=== PATIENT | female | born 1980 | race Caucasian/White ===

== ENCOUNTER 2022-07-04 16:44 | Inpatient (IN) | payer MEDICAID, SELFPAY ==
[2022-07-04 16:45] VITALS: BP 117/82; PULSE 84; RESP 16; O2SAT 97
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
[2022-07-04 17:17] LABS: Add Urine Microscopic? NO; Charge for UA Resulting for Rev
[2022-07-04 17:20] LABS: Bilirubin Urine Neg (Negative); Blood Urine Neg (Negative); Glucose Urine UA Norm (Normal); Ketones Urine Negative (Negative); Leukocyte Esterase Urine Negative (Negative); Nitrate Urine Negative (Negative); Protein Urine Neg (Negative); Specific Gravity, Urine 1.015 (1.005-1.030); Urine Appearance Clear (CLEAR); Urine Color Yellow (Yellow); Urobilinogen Urine Norm (Negative); pH Urine 6 (5-7)
[2022-07-04 17:26] LABS: Basophils # 0.1 10^3/uL (0.0-0.1); Eosinophils # 0.4 10^3/uL (0.0-0.8); Hematocrit 34.8 % (37.0-47.0); Hemoglobin 11.4 g/dL (11.5-15.3); Lymphocytes # 2.8 10^3/uL (0.8-4.8); Lymphocytes % 38.4 %; Mean Corpuscular HGB Conc 32.8 g/dL (30.0-36.0); Mean Corpuscular Hemoglobin 28.8 pg (28.0-34.0); Mean Corpuscular Volume 87.9 fl (81-99); Mean Platelet Volume 9.8 fL (7.4-10.4); Monocytes # 0.5 10^3/uL (0.2-0.9); Monocytes % 6.7 %; Neutrophils # 3.51 10^3/uL (1.8-7.7); Neutrophils % 48.6 %; Nucleated Red Blood Cells % 0 %; Platelet Count 273 10^3/cmm (130-400); Red Blood Count 3.96 10^6/uL (4.1-5.3); Red Cell Distribution Width 15.2 % (12.1-15.1); White Blood Count 7.2 10^3/uL (4.0-10.0)
[2022-07-04 17:27] LABS: HCG Qualitative Urine. Negative (Negative)
[2022-07-04 17:28] LABS: Amphetamines Screen Urine Negative (Negative); Barbiturates Screen Urine Negative (Negative); Benzodiazepines Screen Urine Negative (Negative); Cocaine Screen Urine Negative (Negative); Opiate Screen Urine Negative (Negative); PCP Screen Urine Negative (Negative); THC Screen Urine Negative (Negative)
[2022-07-04 17:50] LABS: Alanine Aminotransferase 7 U/L (0-33); Albumin Level 4.5 g/dL (3.5-5.2); Alkaline Phosphatase 96 U/L (35-105); Anion Gap 14.2 (5-19); Aspartate Amino Transferase 15 U/L (0-32); Blood Urea Nitrogen 11 mg/dL (6-20); Calcium 9.2 mg/dL (8.5-10.5); Carbon Dioxide 23 mmol/L (22-29); Chloride 101 mmol/L (98-107); Globulin 2.7 g/dL (1.3-4.6); Glucose 82 mg/dL (65-115); Osmolality Calculated 276 mOsm/kg (285-295); Potassium 4.2 mmol/L (3.5-5.1); Salicylate 2.9 mg/dL (3-10); Sodium 134 mmol/L (136-145); Total Bilirubin 0.2 mg/dL (0.15-1.2); Total Protein 7.2 g/dL (6.6-8.7)
--- NOTE | 2022-07-04 17:50 | PC.NURSE ---
attempted to call report, nurse not available. Will return call to ED for report.
[2022-07-04 18:09] LABS: Acetaminophen < 5.0 ug/mL (10-30)
[2022-07-04 19:37] VITALS: BP 113/77; PULSE 88; RESP 16; O2SAT 98
[2022-07-04 19:48] VITALS: BP 116/74; PULSE 94; RESP 18; TEMP 36.7; O2SAT 96
[2022-07-04] MEDS: trazodone 50 mg Tablet PO (20:27)
[2022-07-04 20:33] VITALS: BP 116/74; PULSE 94; RESP 18; TEMP 36.7; O2SAT 96
[2022-07-05 06:00] VITALS: BP 116/80; PULSE 85; RESP 16; TEMP 36.3; O2SAT 98
[2022-07-05] MEDS: ibuprofen 600 mg Tablet PO (06:07)
[2022-07-05] MEDS: acetaminophen 325 mg Tablet 650 MG PO (07:40)
[2022-07-05] MEDS: citalopram 20 mg Tablet 40 MG PO (07:41)
[2022-07-05] MEDS: quetiapine 25 mg Tablet 50 MG PO ×2 (07:41→16:43)
[2022-07-05] MEDS: levothyroxine 25 mcg Tablet PO (07:41)
[2022-07-05] MEDS: prazosin 1 mg Capsule PO (07:41)
[2022-07-05] MEDS: cetirizine 10 mg Tablet PO (07:41)
[2022-07-05] MEDS: gabapentin 100 mg Capsule PO ×3 (07:42→19:35)
[2022-07-05] MEDS: nicotine 2 mg Gum BUCCAL ×2 (07:42→12:02)
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
[2022-07-05] MEDS: hyDROXYzine 25 mg Capsule 50 MG PO ×2 (12:29→19:39)
[2022-07-05 14:00] VITALS: BP 141/85; PULSE 84; RESP 16; TEMP 36.8; O2SAT 97
[2022-07-05] MEDS: OLANZapine 5 mg ODT PO (16:44)
[2022-07-05] MEDS: paliperidone ER 6 mg Tablet PO (17:44)
[2022-07-05] MEDS: quetiapine 100 mg Tablet 200 MG PO (19:35)
[2022-07-05 20:42] VITALS: BP 108/70; PULSE 58; RESP 16; TEMP 36.6; O2SAT 97
[2022-07-05 20:53] VITALS: BP 108/70; PULSE 58; RESP 16; TEMP 36.6; O2SAT 97
[2022-07-06 05:55] VITALS: BP 125/89; PULSE 67; RESP 16; TEMP 36.6; O2SAT 99
[2022-07-06] MEDS: hyDROXYzine 25 mg Capsule 50 MG PO ×2 (06:01→11:52)
[2022-07-06] MEDS: prazosin 1 mg Capsule PO (08:33)
[2022-07-06] MEDS: gabapentin 100 mg Capsule PO ×3 (08:34→20:29)
[2022-07-06] MEDS: quetiapine 25 mg Tablet 50 MG PO ×2 (08:34→14:52)
[2022-07-06] MEDS: citalopram 20 mg Tablet 40 MG PO (08:34)
[2022-07-06] MEDS: cetirizine 10 mg Tablet PO (08:34)
[2022-07-06] MEDS: levothyroxine 25 mcg Tablet PO (08:34)
[2022-07-06] MEDS: paliperidone ER 6 mg Tablet PO (08:57)
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
[2022-07-06] MEDS: nicotine 4 mg lozenge MUCOUS MEM (10:25)
[2022-07-06 14:00] VITALS: BP 113/78; PULSE 89; RESP 17; TEMP 36.4; O2SAT 96
[2022-07-06] MEDS: acetaminophen 325 mg Tablet 650 MG PO (16:06)
[2022-07-06] MEDS: quetiapine 100 mg Tablet 200 MG PO (20:29)
[2022-07-06] MEDS: trazodone 50 mg Tablet PO ×2 (20:31→21:30)
[2022-07-06 22:00] VITALS: BP 107/75; PULSE 112; RESP 16; TEMP 36.6; O2SAT 95
[2022-07-07] MEDS: quetiapine 25 mg Tablet 50 MG PO ×2 (07:43→14:37)
[2022-07-07] MEDS: citalopram 20 mg Tablet 40 MG PO (07:43)
[2022-07-07] MEDS: cetirizine 10 mg Tablet PO (07:44)
[2022-07-07] MEDS: prazosin 1 mg Capsule PO (07:44)
[2022-07-07] MEDS: gabapentin 100 mg Capsule PO ×3 (07:44→20:17)
[2022-07-07] MEDS: paliperidone ER 6 mg Tablet PO (07:44)
[2022-07-07] MEDS: hyDROXYzine 25 mg Capsule 50 MG PO (09:27)
[2022-07-07] MEDS: nicotine 4 mg lozenge MUCOUS MEM ×2 (10:23→15:38)
[2022-07-07] MEDS: levothyroxine 25 mcg Tablet PO (11:56)
[2022-07-07 14:00] VITALS: BP 111/79; PULSE 103; RESP 17; TEMP 37.1; O2SAT 96
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
[2022-07-07] MEDS: OLANZapine 5 mg ODT PO (17:50)
[2022-07-07] MEDS: doxepin 10 mg Capsule PO (20:17)
[2022-07-07] MEDS: trazodone 50 mg Tablet PO (20:17)
[2022-07-08] MEDS: trazodone 50 mg Tablet PO ×3 (01:39→21:31)
[2022-07-08] MEDS: nicotine 4 mg lozenge MUCOUS MEM (05:24)
[2022-07-08 06:00] VITALS: BP 111/79; PULSE 103; RESP 17; TEMP 37.1; O2SAT 96
[2022-07-08 06:36] VITALS: BP 123/62; PULSE 94; RESP 18; TEMP 36.7; O2SAT 96
[2022-07-08] MEDS: magnesium hydroxide 30 mL UDC PO (06:54)
[2022-07-08] MEDS: acetaminophen 325 mg Tablet 650 MG PO ×2 (07:51→12:04)
[2022-07-08] MEDS: hyDROXYzine 25 mg Capsule 50 MG PO ×3 (07:53→21:32)
--- NOTE | 2022-07-08 08:02 | PC.NURSE ---
Patient resting in bed and sat up for assessment. Patient pleasant and calm this AM. Denies AH/VH and SI/HI.
[2022-07-08] MEDS: citalopram 20 mg Tablet 40 MG PO (08:48)
[2022-07-08] MEDS: cetirizine 10 mg Tablet PO (08:48)
[2022-07-08] MEDS: gabapentin 100 mg Capsule PO ×3 (08:49→20:08)
[2022-07-08] MEDS: levothyroxine 25 mcg Tablet PO (08:49)
[2022-07-08] MEDS: paliperidone ER 6 mg Tablet PO (08:49)
[2022-07-08] MEDS: prazosin 1 mg Capsule PO (08:49)
[2022-07-08] MEDS: quetiapine 25 mg Tablet 50 MG PO ×2 (08:51→15:52)
[2022-07-08] MEDS: OLANZapine 5 mg ODT PO (10:59)
[2022-07-08 14:00] VITALS: BP 139/89; PULSE 107; RESP 17; TEMP 36.6; O2SAT 97
[2022-07-08] MEDS: doxepin 10 mg Capsule PO (20:08)
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
[2022-07-08 22:00] VITALS: BP 139/89; PULSE 107; RESP 17; TEMP 36.6; O2SAT 97
[2022-07-08] MEDS: quetiapine 100 mg Tablet 200 MG PO (22:21)
[2022-07-08 22:38] VITALS: BP 126/70; PULSE 94; RESP 17; TEMP 36.7; O2SAT 96
[2022-07-09 06:00] VITALS: BP 107/73; PULSE 64; RESP 16; TEMP 36.7; O2SAT 99
[2022-07-09] MEDS: hyDROXYzine 25 mg Capsule 50 MG PO ×2 (06:20→12:27)
[2022-07-09] MEDS: cetirizine 10 mg Tablet PO (08:29)
[2022-07-09] MEDS: gabapentin 100 mg Capsule PO (08:29)
[2022-07-09] MEDS: quetiapine 25 mg Tablet 50 MG PO (08:29)
[2022-07-09] MEDS: levothyroxine 25 mcg Tablet PO (08:29)
[2022-07-09] MEDS: prazosin 1 mg Capsule PO (08:30)
[2022-07-09] MEDS: citalopram 20 mg Tablet 40 MG PO (08:30)
[2022-07-09] MEDS: paliperidone ER 6 mg Tablet PO (08:30)
[2022-07-09] MEDS: magnesium hydroxide 30 mL UDC PO (08:35)
[2022-07-09] MEDS: docusate sodium 100 mg Capsule 200 MG PO (08:35)
[2022-07-09] MEDS: nicotine 4 mg lozenge MUCOUS MEM ×2 (10:17→12:06)
[2022-07-09] MEDS: simethicone 80 mg Chew PO (12:06)
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
[2022-07-09 13:33] VITALS: BP 107/73; PULSE 64; RESP 16; TEMP 36.7; O2SAT 99
== END 2022-07-09 14:15 | disposition home or self-care (01) | DRG 885 ==
LOC: ER 17:32 → NP 19:44
PROVIDERS: Admitting Provider Psychiatry & Neurology Psychiatry; Emergency Provider Student in an Organized Health Care Education/Training Program; Visit Provider Psychiatry & Neurology Psychiatry
DX: F31.9 Bipolar disorder, unspecified (principal); R45.851 Suicidal ideations; F17.200 Nicotine dependence, unspecified, uncomplicated; F15.90 Other stimulant use, unspecified, uncomplicated; F12.90 Cannabis use, unspecified, uncomplicated; F14.91 Cocaine use, unspecified, in remission
CPT/HCPCS: 80053; 80306; 80307; 81003; 81025; 85025; 97150; 97165; 99285

== ENCOUNTER 2022-07-27 12:12 | Inpatient (IN) | payer MEDICAID, SELFPAY ==
[2022-07-27 12:19] VITALS: BP 127/88; PULSE 74; RESP 16; TEMP 36.6; O2SAT 99; BMI 28.8
[2022-07-27 14:50] LABS: Add Urine Microscopic? NO; Charge for UA Resulting for Rev
[2022-07-27 14:54] LABS: Bilirubin Urine Neg (Negative); Blood Urine Neg (Negative); Glucose Urine UA Norm (Normal); Ketones Urine Negative (Negative); Leukocyte Esterase Urine Negative (Negative); Nitrate Urine Negative (Negative); Protein Urine Neg (Negative); Specific Gravity, Urine 1.005 (1.005-1.030); Urine Appearance Clear (CLEAR); Urine Color Straw (Yellow); Urobilinogen Urine Neg (Negative); pH Urine 7 (5-7)
[2022-07-27 15:00] LABS: Amphetamines Screen Urine Negative (Negative); Barbiturates Screen Urine Negative (Negative); Benzodiazepines Screen Urine Negative (Negative); Cocaine Screen Urine Negative (Negative); Opiate Screen Urine Negative (Negative); PCP Screen Urine Negative (Negative); THC Screen Urine Negative (Negative)
--- NOTE | 2022-07-27 15:03 | ECG_ITS ---
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 Measurements Intervals [place] Rate: 76 P: 38 DE: 154 QRS: 58 QRSD: 81 T: 23 QT: 381 QTc: 429 Interpretive Statements SINUS RHYTHM LOW QRS VOLTAGE IN PRECORDIAL LEADS [QRS DEFLECTION < 1.0 mV IN CHEST LEADS] NONSPECIFIC T-WAVE ABNORMALITY No previous ECG available for comparison Electronically Signed On 07-27-2022 18:06:38 TAKE OUT WAITER by Sharon King M.D. [id number]
--- NOTE | 2022-07-27 15:13 | ED.C_ITS ---
HPI - Psych General: Chief Complaint: Psychiatric Symptoms Stated Complaint: behavioral issue Time Seen by Provider: 07/27/22 15:01 History of Present Illness: Patient is a 41-year-old female with a history of bipolar disease who presents with suicidal and homicidal ideations. Patient states that she is having thoughts of wanting to harm herself as well as harm others. She states she is going to blow people up using her later. She states she is also having racing thoughts and having difficulty sleeping. She was admitted 1 month ago for similar symptoms. She denies auditory hallucinations but has been having some visual hallucinations, just having visual distortions. She denies missing her medications. Denies drug or alcohol use. She does smoke. Associated symptoms: Reports visual hallucinations, homicidal ideation and suicidal ideation; Deny auditory hallucinations Review of Systems Const: Denies: fever(s) or chills Eyes: Denies: change in vision or blurry vision ENMT: Denies: throat pain or ear or mastoid pain Card: Denies: chest pain or palpitations Resp: Denies: dyspnea or productive cough GI: Denies: abdominal pain, nausea or vomiting : Denies: difficulty voiding or dysuria Musc: Denies: back pain or extremity pain Skin/Breast: Denies: rash Neuro: Denies: headache(s) or dizziness Psych: Reports: sleeping less, visual hallucinations, suicidal ideation and homicidal ideation; Denies: auditory hallucinations [facility] PFSH: Medical History (Updated 07/27/22 @ 15:36 by Steph Morgan MD) [facility] Psychiatric care Female Reproductive History: Date of last menstrual period: 06/21/22 Physical Exam Const: COMMON NORMALS: no acute distress, patient oriented x3 and alert HENMT: COMMON NORMALS: hearing grossly normal bilaterally and moist oral mucous membranes Eye: COMMON NORMALS: Equal, round and reactive pupils present and EOMs intact bilaterally PUPIL: Yes Equal, round and reactive pupils present Resp: COMMON NORMALS: normal respiratory effort, No use of accessory muscles and clear to auscultation bilaterally AUSCULTATION: clear to auscultation bilaterally Cardio: COMMON NORMALS: regular rate and regular rhythm RATE: regular rate RHYTHM: regular rhythm GI: COMMON NORMALS: Soft to palpation and non-tender PALPATION: Yes Soft to palpation Extremity: COMMON NORMALS: capillary refill normal Neuro: COMMON NORMALS: patient oriented x3, no focal motor deficits and no sensory deficits noted SENSORIUM/ORIENTATION: Yes alert Psych: COMMON NORMALS: speech normal; negative for denies hallucinations, negative for denies homicidal ideation and negative for denies suicidal ideation APPEARANCE: Yes grossly normal ATTITUDE: Yes calm ACTIVITY/MOTOR BEHAVIOR: Yes appropriate eye contact SPEECH: Yes normal speech MOOD & AFFECT: Yes apathetic THOUGHT PROCESS: racing thoughts THOUGHT CONTENT: Yes Suicidality present and Yes Hallucination(s) present auditory JUDGEMENT: Limited judgement present (Psych) OTHER: Patient is having both homicidal and suicidal ideations Skin: COMMON NORMALS: no rashes or lesions noted and turgor normal GENERAL SKIN EXAM: no rashes or lesions noted and turgor normal Course Reevaluation(s): Reevaluation #1: Patient is medically cleared for psychiatric admission. Will discuss with a psychiatrist. Consultations: Consultation #1: Discussed with Dr. Parra who agrees with admission Vital Signs: Vital signs: Vital Signs Temperature 97.8 F 07/27/22 12:19 Pulse Rate 74 07/27/22 12:19 Respiratory Rate 16 07/27/22 12:19 Blood Pressure 127/88 07/27/22 12:19 Pulse Oximetry 99 07/27/22 12:19 Oxygen Delivery Me thod 07/27/22 12:19 MDM - Psych Medical Decision Making 41-year-old female with history of bipolar disease who presents with racing thoughts and suicidal and homicidal ideations. The patient will need medical clearance and then psychiatric evaluation and probable psychiatric admission. Lab Data 07/27/22 15:42 07/27/22 15:42 Laboratory Results WBC 7.1 10^3/uL (4.0-10.0) 07/27/22 15:42 RBC 3.94 10^6/uL (4.1-5.3) L 07/27/22 15:42 Hgb 11.5 g/dL (11.5-15.3) 07/27/22 15:42 Hct 34.7 % (37.0-47.0) L 07/27/22 15:42 MCV 88.1 fl (81-99) 07/27/22 15:42 MCH 29.2 pg (28.0-34.0) 07/27/22 15:42 MCHC 33.1 g/dL (30.0-36.0) 07/27/22 15:42 RDW 14.9 % (12.1-15.1) 07/27/22 15:42 Plt Count 318 10^3/cmm (130-400) 07/27/22 15:42 MPV 9.4 fL (7.4-10.4) 07/27/22 15:42 Neut % (Auto) 44.1 % 07/27/22 15:42 Lymph % (Auto) 37.4 % 07/27/22 15:42 [place] % (Auto) 8.5 % 07/27/22 15:42 Eos % (Auto) 8.9 % 07/27/22 15:42 Baso % (Auto) 1.0 % 07/27/22 15:42 Neut # (Auto) 3.12 10^3/uL (1.8-7.7) 07/27/22 15:42 Lymph # (Auto) 2.7 10^3/uL (0.8-4.8) 07/27/22 15:42 [place] # (Auto) 0.6 10^3/uL (0.2-0.9) 07/27/22 15:42 Eos # (Auto) 0.6 10^3/uL (0.0-0.8) 07/27/22 15:42 Baso # (Auto) 0.1 10^3/uL (0.0-0.1) 07/27/22 15:42 Nucleated RBC % (auto) 0 % 07/27/22 15:42 Nucleated RBCs # 0.0 /100WBC 07/27/22 15:42 Sodium 135 mmol/L (136-145) L 07/27/22 15:42 Potassium 3.7 mmol/L (3.5-5.1) 07/27/22 15:42 Chloride 100 mmol/L (98-107) 07/27/22 15:42 Carbon Dioxide 26 mmol/L (22-29) 07/27/22 15:42 Anion Gap 12.7 (5-19) 07/27/22 15:42 BUN 14 mg/dL (6-20) 07/27/22 15:42 Creatinine 0.9 mg/dL (0.5-0.9) 07/27/22 15:42 GFR Calculation 69.0 mL/min (90-130) L 07/27/22 15:42 Glucose 64 mg/dL (65-115) L 07/27/22 15:42 Calculated Osmolality 279 mOsm/kg (285-295) L 07/27/22 15:42 Calcium 9.8 mg/dL (8.5-10.5) 07/27/22 15:42 Total Bilirubin 0.2 mg/dL (0.15-1.2) 07/27/22 15:42 AST 17 U/L (0-32) 07/27/22 15:42 ALT 12 U/L (0-33) 07/27/22 15:42 Alkaline Phosphatase 104 U/L (35-105) 07/27/22 15:42 Total Protein 7.3 g/dL (6.6-8.7) 07/27/22 15:42 Albumin 4.4 g/dL (3.5-5.2) 07/27/22 15:42 Globulin 2.9 g/dL (1.3-4.6) 07/27/22 15:42 HCG, Qual Negative (Negative) 07/27/22 15:42 Urine Color Straw (Yellow) 07/27/22 12:49 Urine Appearance Clear (CLEAR) 07/27/22 12:49 Urine pH 7 (5-7) 07/27/22 12:49 Ur Specific [place] 1.005 (1.005-1.030) 07/27/22 12:49 Urine Protein Neg (Negative) 07/27/22 12:49 Urine Glucose (UA) Norm (Normal) 07/27/22 12:49 Urine Ketones Negative (Negative) 07/27/22 12:49 Urine Blood Neg (Negative) 07/27/22 12:49 Urine Nitrate Negative (Negative) 07/27/22 12:49 Urine Bilirubin Neg (Negative) 07/27/22 12:49 Urine Urobilinogen Neg mg/dL (Negative) 07/27/22 12:49 Ur Leukocyte Esterase Negative (Negative) 07/27/22 12:49 Salicylates < 0.3 mg/dL (3-10) L 07/27/22 15:42 Urine Opiates Screen Negative ng/mL (Negative) 07/27/22 12:49 Urine Opiates Screen Negative ng/mL (Negative) 07/27/22 12:49 Acetaminophen < 5.0 ug/mL (10-30) L 07/27/22 15:42 Ur Barbiturates Screen Negative ng/mL (Negative) 07/27/22 12:49 Ur Barbiturates Screen Negative ng/mL (Negative) 07/27/22 12:49 Ur Phencyclidine Scrn Negative ng/mL (Negative) 07/27/22 12:49 Ur Phencyclidine Scrn Negative ng/mL (Negative) 07/27/22 12:49 Ur Amphetamines Screen Negative ng/mL (Negative) 07/27/22 12:49 Ur Amphetamines Screen Negative ng/mL (Negative) 07/27/22 12:49 U Benzodiazepines Scrn Negative ng/mL (Negative) 07/27/22 12:49 U Benzodiazepines Scrn Negative ng/mL (Negative) 07/27/22 12:49 Urine Cocaine Screen Negative ng/mL (Negative) 07/27/22 12:49 Urine Cocaine Screen Negative ng/mL (Negative) 07/27/22 12:49 U Marijuana (THC) Screen Negative ng/mL (Negative) 07/27/22 12:49 U Marijuana (THC) Screen Negative ng/mL (Negative) 07/27/22 12:49 Ethyl Alcohol < 10 mg/dL (0-10) 07/27/22 15:42 Discharge Plan Discharge Patient Disposition: Admitted As Inpatient Clinical Impression: Suicidal ideation, Bipolar disorder, Homicidal ideations Condition: Stable Prescriptions: No Action citalopram 40 mg tablet 40 mg PO DAILY 30 Days Qty: 30 3RF gabapentin 100 mg capsule 100 mg PO TID 30 Days Qty: 90 1RF levothyroxine 25 mcg tablet 25 mcg PO DAILY 30 Days Qty: 30 1RF paliperidone 6 mg tablet extended release 24hr 6 mg PO DAILY 30 Days Qty: 30 1RF prazosin 1 mg capsule 1 mg PO DAILY 30 Days Qty: 30 1RF quetiapine 200 mg tablet 200 mg PO BEDTIME 30 Days Qty: 30 1RF quetiapine 25 mg tablet 50 mg PO BID@0900,1500 30 Days Qty: 60 1RF trazodone 50 mg tablet 25 mg PO DAILY Qty: 30 1RF hydroxyzine HCl 50 mg tablet 50 mg PO TID 30 Days Qty: 90 0RF doxepin 10 mg Capsule 10 mg PO BEDTIME 30 Days Qty: 30 1RF cetirizine 10 mg tablet 10 mg PO DAILY 30 Days Qty: 30 1RF Coding Level of Care Code ED Statistical Programmer for Chg Fwd Exam Comprehensive
[2022-07-27 15:59] LABS: Basophils # 0.1 10^3/uL (0.0-0.1); Eosinophils # 0.6 10^3/uL (0.0-0.8); Eosinophils % 8.9 %; Hematocrit 34.7 % (37.0-47.0); Hemoglobin 11.5 g/dL (11.5-15.3); Lymphocytes # 2.7 10^3/uL (0.8-4.8); Lymphocytes % 37.4 %; Mean Corpuscular HGB Conc 33.1 g/dL (30.0-36.0); Mean Corpuscular Hemoglobin 29.2 pg (28.0-34.0); Mean Corpuscular Volume 88.1 fl (81-99); Mean Platelet Volume 9.4 fL (7.4-10.4); Monocytes # 0.6 10^3/uL (0.2-0.9); Monocytes % 8.5 %; Neutrophils # 3.12 10^3/uL (1.8-7.7); Neutrophils % 44.1 %; Nucleated Red Blood Cells % 0 %; Platelet Count 318 10^3/cmm (130-400); Red Blood Count 3.94 10^6/uL (4.1-5.3); Red Cell Distribution Width 14.9 % (12.1-15.1); White Blood Count 7.1 10^3/uL (4.0-10.0)
[2022-07-27 16:04] LABS: Amphetamines Screen Urine Negative (Negative); Barbiturates Screen Urine Negative (Negative); Benzodiazepines Screen Urine Negative (Negative); Cocaine Screen Urine Negative (Negative); Opiate Screen Urine Negative (Negative); PCP Screen Urine Negative (Negative); THC Screen Urine Negative (Negative)
[2022-07-27 16:30] LABS: HCG, Serum Qual Negative (Negative)
[2022-07-27 16:32] LABS: Alanine Aminotransferase 12 U/L (0-33); Albumin Level 4.4 g/dL (3.5-5.2); Alkaline Phosphatase 104 U/L (35-105); Anion Gap 12.7 (5-19); Aspartate Amino Transferase 17 U/L (0-32); Blood Urea Nitrogen 14 mg/dL (6-20); Calcium 9.8 mg/dL (8.5-10.5); Carbon Dioxide 26 mmol/L (22-29); Chloride 100 mmol/L (98-107); Globulin 2.9 g/dL (1.3-4.6); Glucose 64 mg/dL (65-115); Osmolality Calculated 279 mOsm/kg (285-295); Potassium 3.7 mmol/L (3.5-5.1); Sodium 135 mmol/L (136-145); Total Bilirubin 0.2 mg/dL (0.15-1.2); Total Protein 7.3 g/dL (6.6-8.7)
[2022-07-27 16:35] LABS: Acetaminophen < 5.0 ug/mL (10-30); Alcohol Level < 10 mg/dL (0-10); Salicylate < 0.3 mg/dL (3-10)
[2022-07-27 17:19] LABS: SARS Covid-2 Antigen Negative (Negative)
[2022-07-27] MEDS: nicotine 14 mg Patch 1 PATCH TRANSDERMA (17:19)
[2022-07-27 21:02] VITALS: PULSE 70; RESP 14; O2SAT 99
[2022-07-27 21:12] VITALS: BP 117/85; PULSE 86; RESP 18; TEMP 36.4; O2SAT 96
[2022-07-27] MEDS: acetaminophen 325 mg Tablet 650 MG PO (21:23)
[2022-07-27 22:00] VITALS: BP 117/85; PULSE 86; RESP 18; TEMP 36.4
[2022-07-27] MEDS: gabapentin 100 mg Capsule PO (22:30)
[2022-07-27] MEDS: doxepin 10 mg Capsule PO (22:30)
[2022-07-27] MEDS: hyDROXYzine 25 mg Capsule 50 MG PO (22:30)
[2022-07-27] MEDS: trazodone 50 mg Tablet PO (22:30)
[2022-07-28] MEDS: acetaminophen 325 mg Tablet 650 MG PO ×3 (02:45→15:05)
[2022-07-28] MEDS: ibuprofen 600 mg Tablet PO ×3 (05:27→20:08)
[2022-07-28 06:00] VITALS: BP 125/83; PULSE 79; RESP 18; TEMP 36.4; O2SAT 99
[2022-07-28] MEDS: levothyroxine 25 mcg Tablet PO (08:58)
[2022-07-28] MEDS: prazosin 1 mg Capsule PO (08:58)
[2022-07-28] MEDS: paliperidone ER 6 mg Tablet PO (08:58)
[2022-07-28] MEDS: citalopram 20 mg Tablet 40 MG PO (08:59)
[2022-07-28] MEDS: cetirizine 10 mg Tablet PO (08:59)
[2022-07-28] MEDS: hyDROXYzine 25 mg Capsule 50 MG PO ×3 (08:59→20:10)
[2022-07-28] MEDS: gabapentin 100 mg Capsule PO ×3 (08:59→20:09)
[2022-07-28] MEDS: quetiapine 25 mg Tablet 50 MG PO ×2 (08:59→15:06)
[2022-07-28 14:00] VITALS: BP 114/80; PULSE 64; RESP 17; TEMP 36.7; O2SAT 98
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
[2022-07-28] MEDS: docusate sodium 100 mg Capsule 200 MG PO (20:09)
[2022-07-28] MEDS: doxepin 10 mg Capsule PO (20:09)
[2022-07-28] MEDS: quetiapine 100 mg Tablet 200 MG PO (20:09)
[2022-07-28] MEDS: trazodone 50 mg Tablet PO (20:11)
[2022-07-28 20:31] VITALS: BP 110/74; PULSE 92; RESP 17; TEMP 36.4; O2SAT 98
[2022-07-29] MEDS: acetaminophen 325 mg Tablet 650 MG PO ×4 (02:39→20:43)
[2022-07-29] MEDS: magnesium hydroxide 30 mL UDC PO (02:45)
[2022-07-29] MEDS: hyDROXYzine 25 mg Capsule 50 MG PO ×4 (02:45→20:44)
--- NOTE | 2022-07-29 02:51 | PC.NURSE ---
Patient woke up with a head ache which caused an anxiety flair. She was also concerned about her constipation. Vistaril 50mg PO and M.O.M. 30ml PO given for anxiety and constipation.
[2022-07-29] MEDS: ibuprofen 600 mg Tablet PO ×3 (05:16→22:49)
[2022-07-29 06:00] VITALS: BP 119/85; PULSE 96; RESP 18; TEMP 36.3; O2SAT 99
[2022-07-29] MEDS: prazosin 1 mg Capsule 2 MG PO (08:30)
[2022-07-29] MEDS: paliperidone ER 6 mg Tablet 9 MG PO (08:31)
[2022-07-29] MEDS: gabapentin 100 mg Capsule PO ×3 (08:33→20:43)
[2022-07-29] MEDS: quetiapine 25 mg Tablet 50 MG PO ×2 (08:34→18:13)
[2022-07-29] MEDS: citalopram 20 mg Tablet PO (08:34)
[2022-07-29] MEDS: cetirizine 10 mg Tablet PO (08:34)
[2022-07-29] MEDS: levothyroxine 25 mcg Tablet PO (08:34)
[2022-07-29 14:00] VITALS: BP 120/68; PULSE 78; RESP 18; TEMP 36.6; O2SAT 99
--- NOTE | 2022-07-29 16:54 | P.NPUPN_ITS ---
Subjective NPU Subjective: Patient presented today recounting the circumstances that led to her come back to the hospital. She did not find that she is actually doing better and was trying to avoid things getting to a worse place. She did 5 vet she had not been sleeping as well and we discussed ultimately making sure that she had 150 mg of trazodone available after discharge. We discussed the risks, benefits and alternatives of having a prescription to be for 1 mg up to 1-1/2 at night and she understood and agreed to proceed as documented in this note. Mental Status Exam MSE Comments: This is well nourished, well developed white female in hospital scrubs with adequate grooming and eye contact. No abnormal involuntary motor movements. Cooperative with exam in no acute distress. Speech was slightly pressured with increased in volume and increased rate. Mood described as a little better today , affect is congruent. Thought process was linear and mostly organized. Thought content: patient denies suicidal or homicidal ideation, denies paranoia currently and no clear delusions noted She denied current auditory or visual hallucinations. Attention and concentration are intact and memory appeared reliable but none were formally tested. She is alert and oriented three times. Insight and judgment are impaired. Impulse control is poor. Vitals/I&O/Wt Last Vital Signs Temp 97.6 F 07/29/22 20:40 Pulse 79 07/29/22 20:40 Resp 17 07/29/22 20:40 BP 116/78 07/29/22 20:40 Pulse Ox 97 07/29/22 20:40 O2 Del Method 07/29/22 20:40 Data NPU 07/27/22 15:42 07/27/22 15:42 A&P Assessment and plan (1) Auditory hallucinations: (2) Suicidal ideation: (3) Katt: (4) Bipolar disorder: (5) Suicidal ideation: Plan This is a 41 year old woman with a history of trauma, methamphetamine and cocaine use, with negative drug screen and genetic loading for mental health issues who presents with reports of suicidal ideation decreased need for sleep and some increase in racing thoughts. 1. Restart current medications with increase in invega to 9mg daily. Continue Seroquel at 50bid, 200qhs. Increase Prazosin to 6mg at night. Taper Ce tanisha with plan for discontinuation as it may increase risk of katt. Increase trazodone to 100 mg p.o. nightly with access to 50 milligrams as needed. 2. Encourage individual, group and milieu therapy 3. Continue q-15 minute check for safety 4. Recommend sober living treatment at the highest level of care to which the patient is willing to commit. Involuntary Hold Information 96 Hour Hold: 96 Hour Involuntary Admission: No Attestations NPU Medical Necessity Statement*: Inpatient hospitalization is medically necessary and the clinically appropriate intervention at this time. We will monitor medications and make changes as indicated. Likely length of stay is 3-6 days. Coding Level of Care Code Acute Mold Injector for Chg Fwd Diagnoses Auditory hallucinations R44.0 Suicidal ideation R45.851 Katt F30.9 Bipolar disorder F31.9 Suicidal ideation R45.851
[2022-07-29 20:40] VITALS: BP 116/78; PULSE 79; RESP 17; TEMP 36.4; O2SAT 97
[2022-07-29] MEDS: quetiapine 100 mg Tablet 200 MG PO (20:43)
[2022-07-29] MEDS: trazodone 50 mg Tablet 25 MG PO (20:43)
[2022-07-29] MEDS: doxepin 10 mg Capsule PO (20:43)
[2022-07-30] MEDS: acetaminophen 325 mg Tablet 650 MG PO ×2 (04:16→11:53)
[2022-07-30 06:00] VITALS: BP 114/77; PULSE 60; RESP 18; TEMP 36.6; O2SAT 94
[2022-07-30] MEDS: nicotine 4 mg lozenge MUCOUS MEM (07:40)
[2022-07-30] MEDS: docusate sodium 100 mg Capsule 200 MG PO (07:42)
[2022-07-30] MEDS: ibuprofen 600 mg Tablet PO (07:43)
[2022-07-30] MEDS: cetirizine 10 mg Tablet PO (08:30)
[2022-07-30] MEDS: paliperidone ER 6 mg Tablet 9 MG PO (08:30)
[2022-07-30] MEDS: citalopram 20 mg Tablet PO (08:30)
[2022-07-30] MEDS: gabapentin 100 mg Capsule PO (08:30)
[2022-07-30] MEDS: prazosin 1 mg Capsule 2 MG PO (08:30)
[2022-07-30] MEDS: hyDROXYzine 25 mg Capsule 50 MG PO (08:30)
[2022-07-30] MEDS: levothyroxine 25 mcg Tablet PO (08:30)
[2022-07-30] MEDS: quetiapine 25 mg Tablet 50 MG PO (08:30)
[2022-07-30] MEDS: nicotine 2 mg Gum BUCCAL (12:22)
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
[2022-07-30 13:28] VITALS: BP 114/77; PULSE 60; RESP 18; TEMP 36.6; O2SAT 94
== END 2022-07-30 14:05 | disposition home or self-care (01) | DRG 885 ==
LOC: ER 17:06 → NP 17:42
PROVIDERS: Admitting Provider Psychiatry & Neurology Psychiatry; Emergency Provider Emergency Medicine; Visit Provider Psychiatry & Neurology Psychiatry
DX: F31.9 Bipolar disorder, unspecified (principal); R45.851 Suicidal ideations; F43.12 Post-traumatic stress disorder, chronic; Z59.00 Homelessness unspecified; F15.90 Other stimulant use, unspecified, uncomplicated; F14.90 Cocaine use, unspecified, uncomplicated
CPT/HCPCS: 36415; 80053; 80306; 80307; 81003; 84443; 84703; 85025; 87426; 93005; 97150; 97165; 99285

== ENCOUNTER → 2022-08-11 15:40 | Outpatient (BNVA) | payer MEDICAID, SELFPAY | PROVIDERS: Visit Provider Emergency Medicine | DX: E03.9 Hypothyroidism, unspecified (principal); I10 Essential (primary) hypertension | CPT/HCPCS: 85025 ==

== ENCOUNTER 2023-01-25 12:47 | Outpatient (CLI) | payer OTHER, MEDICAID, SELFPAY ==
[2023-01-25 13:37] LABS: Basophils % 0.7 %; Eosinophils # 0.4 10^3/uL (0.0-0.8); Eosinophils % 6.5 %; Hematocrit 35.5 % (37.0-47.0); Hemoglobin 11.6 g/dL (11.5-15.3); Lymphocytes # 2.3 10^3/uL (0.8-4.8); Lymphocytes % 40.3 %; Mean Corpuscular HGB Conc 32.7 g/dL (30.0-36.0); Mean Corpuscular Hemoglobin 28.7 pg (28.0-34.0); Mean Corpuscular Volume 87.9 fl (81-99); Mean Platelet Volume 11.3 fL (7.4-10.4); Monocytes # 0.5 10^3/uL (0.2-0.9); Monocytes % 8.6 %; Neutrophils # 2.44 10^3/uL (1.8-7.7); Neutrophils % 43.7 %; Nucleated Red Blood Cells % 0 %; Platelet Count 251 10^3/cmm (130-400); Red Blood Count 4.04 10^6/uL (4.1-5.3); Red Cell Distribution Width 14.9 % (12.1-15.1); White Blood Count 5.6 10^3/uL (4.0-10.0)
[2023-01-25 14:09] LABS: Alanine Aminotransferase 7 U/L (0-33); Albumin Level 4.2 g/dL (3.5-5.2); Alkaline Phosphatase 101 U/L (35-105); Anion Gap 12.9 (5-19); Aspartate Amino Transferase 12 U/L (0-32); Blood Urea Nitrogen 5 mg/dL (6-20); Calcium 8.6 mg/dL (8.5-10.5); Carbon Dioxide 22 mmol/L (22-29); Chloride 106 mmol/L (98-107); Chol HDL Ratio 3.58 mg/dL (0.0-4.40); Cholesterol 143 mg/dL (0-200); Globulin 2.6 g/dL (1.3-4.6); Glomerular Filtration Rate 78.7 mL/min (90-130); Glucose 92 mg/dL (65-115); HDL Cholesterol 40 mg/dL (60-100); LDL Cholesterol Calculated 86 mg/dL (50-129); LDL HDL Ratio 2.15 RATIO (0.00-3.22); Osmolality Calculated 281 mOsm/kg (285-295); Potassium 3.9 mmol/L (3.5-5.1); Sodium 137 mmol/L (136-145); Total Bilirubin 0.2 mg/dL (0.15-1.2); Total Protein 6.8 g/dL (6.6-8.7); Triglycerides 86 mg/dL (0-150)
[2023-01-25 14:52] LABS: Free T4 Free Thyroxine 0.38 ng/dL (0.82-1.77)
[2023-01-25 15:36] LABS: Estmated Average Glucose 97
[2023-01-28 11:44] LABS: Thyroid Peroxidase Antobodies >900 IU/mL (<9)
== END 2023-01-25 12:48 | disposition home or self-care (01) ==
LOC: LAB 12:51
PROVIDERS: PCP Family Medicine; Visit Provider Family Medicine
DX: E03.9 Hypothyroidism, unspecified (principal)
CPT/HCPCS: 36415; 80053; 80061; 83036; 84439; 84443; 85025; 86376

== ENCOUNTER 2023-02-07 06:07 | Outpatient (CLI) | payer OTHER, MEDICAID, SELFPAY ==
--- NOTE | 2023-02-07 06:15 | US_ITS ---
WS: [id number] RIGHT UPPER QUADRANT ULTRASOUND HISTORY: RUQ pain COMPARISON: None available. Liver: 16.4 cm in length. Normal size liver and echogenicity. No bile duct dilatation or mass. Portal Vein: Normal hepatopetal flow with monophasic waveform. Gallbladder: Normally distended gallbladder with no stones or wall thickening. CBD: 0.3 cm Pancreas: Normal size and echogenicity. Right kidney: 11.2 cm in length. Normal size and echogenicity. No hydronephrosis or mass. Aorta and IVC: Unremarkable abdominal aorta and IVC. No ascites. US/US gall bladder [id number] IMPRESSION: Normal RIGHT upper quadrant ultrasound.
== END 2023-02-07 06:08 | disposition home or self-care (01) ==
LOC: RAD 06:08
PROVIDERS: PCP Family Medicine; Visit Provider Family Medicine
DX: R10.11 Right upper quadrant pain (principal)
CPT/HCPCS: 76705

== ENCOUNTER 2023-02-11 14:21 | Outpatient (CLI) | payer MEDICAID, SELFPAY ==
--- NOTE | 2023-02-11 14:45 | US_ITS ---
WS: [id number] THYROID ULTRASOUND HISTORY: hypothyroid, nodule COMPARISON: None available. Right lobe: 2.0 cm x 1.9 cm x 5.1 cm (w x ap x l). Volume: 10.3 cm3. Mildly enlarged thyroid. Very heterogeneous appearance of the thyroid gland small micronodules with t hick fibrous septa throughout the gland. No increased vascularity or focal mass. Scattered areas of v ariable echogenicity. Left lobe: 1.4 cm x 1.9 cm x 4.7 cm (w x ap x l). Volume: 6.4 cm3. Normal size gland. Thick fibrous septa with small hypoechoic micronodules scattered throughout the gl and. No increased vascularity. Isthmus: 0.4 cm. Small cervical chain lymph nodes. These lymph nodes appear benign. US/US thyroid [id number] IMPRESSION: 1. Appearance of the thyroid gland is most consistent with chronic Denita's thyroiditis. 2. No nodule concerning for biopsy.
== END 2023-02-11 14:22 | disposition home or self-care (01) ==
LOC: RAD 14:30
PROVIDERS: PCP Family Medicine; Visit Provider Family Medicine
DX: E03.9 Hypothyroidism, unspecified (principal)
CPT/HCPCS: 76536

== ENCOUNTER → 2023-02-25 11:24 | Outpatient (BNVA) | payer MEDICAID, SELFPAY | PROVIDERS: PCP Family Medicine; Visit Provider Internal Medicine | DX: E03.9 Hypothyroidism, unspecified (principal); F41.9 Anxiety disorder, unspecified; Z79.890 Hormone replacement therapy | CPT/HCPCS: 99204 ==

== ENCOUNTER 2023-03-02 15:13 | Outpatient (CLI) | payer MEDICAID, SELFPAY ==
[2023-03-02 20:08] LABS: Free T4 Free Thyroxine 1.44 ng/dL (0.82-1.77)
[2023-03-07 10:30] LABS: Thyroid Peroxidase Antobodies >900 IU/mL (<9)
[2023-03-07 10:34] LABS: Thyroglobulin AB 230 IU/mL (< or = 1)
== END 2023-03-02 15:14 | disposition home or self-care (01) ==
PROVIDERS: PCP Family Medicine; Visit Provider Internal Medicine
DX: E03.9 Hypothyroidism, unspecified (principal)
CPT/HCPCS: 36415; 84439; 86376; 86800

== ENCOUNTER → 2023-04-27 12:22 | Outpatient (BNVA) | payer OTHER, MEDICAID, SELFPAY ==
[2023-04-06 13:09] VITALS: BP 126/78; BMI 29.1
== END ==
PROVIDERS: PCP Family Medicine; Visit Provider Family Medicine
DX: Z12.4 Encounter for screening for malignant neoplasm of cervix (principal); N89.8 Other specified noninflammatory disorders of vagina
CPT/HCPCS: 87481; 87512; 87624; 87799

== ENCOUNTER → 2023-05-10 12:00 | Outpatient (BNVA) | payer OTHER, MEDICAID, SELFPAY ==
[2023-04-06 13:09] VITALS: BP 126/78; BMI 29.1
== END ==
PROVIDERS: PCP Family Medicine; Visit Provider Internal Medicine
DX: E03.9 Hypothyroidism, unspecified (principal); F41.9 Anxiety disorder, unspecified; K21.9 Gastro-esophageal reflux disease without esophagitis; R53.83 Other fatigue
CPT/HCPCS: 82306; 82607; 83540; 84439; 84443

== ENCOUNTER → 2023-05-18 11:48 | Outpatient (BNVA) | payer OTHER, SELFPAY ==
[2023-04-06 13:09] VITALS: BP 126/78; BMI 29.1
== END ==
PROVIDERS: PCP Family Medicine; Visit Provider Psychiatry & Neurology Psychiatry
DX: F15.11 Other stimulant abuse, in remission (principal); F19.10 Other psychoactive substance abuse, uncomplicated; F11.21 Opioid dependence, in remission; F15.20 Other stimulant dependence, uncomplicated; F31.9 Bipolar disorder, unspecified
CPT/HCPCS: 80307

== ENCOUNTER 2023-06-22 14:21 | Outpatient (CLI) | payer MEDICAID, SELFPAY ==
[2023-04-06 13:09] VITALS: BP 126/78; BMI 29.1
[2023-06-22 15:22] LABS: Alanine Aminotransferase 11 U/L (0-33); Albumin Level 4.1 g/dL (3.5-5.2); Alkaline Phosphatase 95 U/L (35-105); Aspartate Amino Transferase 18 U/L (0-32); Blood Urea Nitrogen 6 mg/dL (6-20); Calcium 9.5 mg/dL (8.5-10.5); Carbon Dioxide 26 mmol/L (22-29); Chloride 105 mmol/L (98-107); Globulin 2.7 g/dL (1.3-4.6); Glomerular Filtration Rate 68.7 mL/min (90-130); Glucose 100 mg/dL (65-115); Osmolality Calculated 288 mOsm/kg (285-295); Sodium 140 mmol/L (136-145); Total Bilirubin 0.3 mg/dL (0.15-1.2); Total Protein 6.8 g/dL (6.6-8.7)
[2023-06-22 15:35] LABS: Hepatitis A Antibody IgM Non-Reactive (Nonreactive); Hepatitis B Core IgM Non-Reactive (Nonreactive); Hepatitis B Surface Antigen Non-Reactive (Nonreactive); Hepatitis C Virus Antibody Non-Reactive (Nonreactive)
[2023-06-22 15:38] LABS: HIV 1 & 2 Antibody Non-Reactive (Non-Reactiv); HIV 1 & 2 Antigen Non-Reactive (Non-Reactiv)
== END 2023-06-22 14:22 | disposition home or self-care (01) ==
LOC: LAB 14:24
PROVIDERS: PCP Family Medicine; Visit Provider Family Medicine
DX: Z72.51 High risk heterosexual behavior (principal); F15.20 Other stimulant dependence, uncomplicated
CPT/HCPCS: 36415; 80053; 80074; 87806

== ENCOUNTER 2023-07-27 05:58 | Day surgery (SDC) | payer MEDICAID, SELFPAY ==
[2023-04-06 13:09] VITALS: BP 126/78; BMI 29.1
[2023-07-27 06:12] VITALS: BP 139/100; PULSE 106; RESP 16; TEMP 36.5; O2SAT 97
[2023-07-27 06:27] LABS: OR HCG Qualitative Urine Negative (Negative)
--- NOTE | 2023-07-27 06:36 | P.ANESASSM_ITS ---
Pre-Anesthetic Assessment Height/Weight: Height 1.74 m Temp Pulse Resp BP Pulse Ox O2 Del Method 97.7 F 106 H 16 139/100 97 Room Air 07/27/23 06:12 07/27/23 06:12 07/27/23 06:12 07/27/23 06:12 07/27/23 06:12 07/27/23 06:12 Operation Date: 07/27/23 07:00 Proposed Procedures p EGD 27725,K21.9(Not Applicable) - Pranav Rodriguez DO Familial anesthetic complications: None Was Beta Jonathan taken within 24 hours: N/A Was Clonidine taken within 24 hours: N/A Last intake: Intake Last Liquid Date 07/26/23 Last Liquid Time 20:00 Last Solid Date 07/25/23 Last Solid Time 15:00 Social Tobacco 0.5 pack(s) per day Exam alert, oriented x 3, clear to auscultation bilaterally and regular rate & rhythm Airway Submandibular: within normal limits Cervical ROM: within normal limits Mallampati: Class II Dentition: full History/ROS No significant history except as noted and No significant complaints Pulmonary None reported CV/HEM Arrythmia (Tachycardia) and Hypertension None reported Hepatic None reported GI Gastroesophageal Reflux Disease Constipation Metabolic Thyroid Disease [facility] [place] None reported Neuropsych Anxiety, Depression and Seizure (2014 none since) Bipolar/radha Anesthetic Plan ASA status: 3 Anesthesia: Anesthesia Evaluation, General and MAC Medications/Allergies Home Medications Medication Instructions Recorded Confirmed Last Taken Type cetirizine 10 mg tablet 10 mg PO DAILY 30 days #30 tabs 08/11/22 07/27/23 07/26/23 Rx fluticasone propionate 50 2 spray nasal BID PRN Congestion 06/06/23 07/27/23 07/26/23 Rx mcg/actuation nasal 30 days #1 g spray,suspension sucralfate 1 gram tablet (Carafate) 1 g PO BID #120 tabs 06/13/23 07/27/23 07/26/23 Rx pantoprazole 40 mg tablet,delayed 40 mg PO BID 6 weeks #84 tabs 06/21/23 07/27/23 07/26/23 Rx release (Protonix) polyethylene glycol 3350 17 17 g PO DAILY 30 days #119 grams 06/21/23 07/27/23 Unknown Rx gram/dose oral powder (Miralax) doxepin 25 mg capsule 50 - 75 mg (2 - 3 x 25 mg) PO 06/30/23 07/27/23 07/26/23 Rx BEDTIME 30 days #90 caps paliperidone 6 mg tablet,extended 12 mg (2 x 6 mg) PO QAM PRN 06/30/23 07/25/23 Unknown Rx release 24 hr (Invega) psychosis #60 tabs paliperidone palmitate 234 mg/1.5 234 mg (1.5 mL) IM Q30D #1.5 mL 06/30/23 07/25/23 07/05/23 Rx mL intramuscular syringe (Invega Sustenna) trazodone 100 mg tablet 300 mg (3 x 100 mg) PO .HS PRN 06/30/23 07/25/23 07/24/23 Rx insomnia #90 tabs hydroxyzine HCl 50 mg tablet 50 mg PO TID PRN anxiety or 07/25/23 07/27/23 07/26/23 History insomnia levothyroxine 150 mcg tablet 150 mcg PO DAILY 07/25/23 07/25/23 07/27/23 History prazosin 5 mg capsule (Minipress) 5 - 10 mg PO BID 07/25/23 07/27/23 07/26/23 History Allergies Allergy/AdvReac Type Severity Reaction Status Date / Time No Known Allergies Allergy Verified 07/25/23 09:32 [facility] Anesthesia Medical History Anxiety Bipolar disorder with psychotic features Depression Fatigue Homeless Hypothyroid Insomnia Psychiatric care Schizophrenia Substance abuse Surgical History History of bilateral tubal ligation History of hernia repair Family History Other Psychiatric illness Denies family history of Diabetes CAD (coronary artery disease) Clotting disorder Dementia Hyperlipidemia Chronic kidney disease (CKD) Anesthesia complication Bleeding disorder Lung disease Cancer Hypertension Stroke Social History Smoking and tobacco/nicotine status: current every day tobacco/nicotine user cigarettes Packs smoked per day: 0.5 Years cigarettes smoked: 22 Quit status (tobacco/nicotine): has tried quititng Number of times tried to quit tobacco: 2 Second hand smoke exposure: No Alcohol intake: former Substance/Drug Use: former Adopted: No Caregiver/support person: No Lives independently: Yes Household members: none Housing: Other Details: RV Marital status: Number of children: 3 Number of grandchildren: 4 Highest education level completed: GED or Equivalent service: No Current occupational status: unemployed Current occupational exposures/hazards: No Pets and animals: Yes Pets & animals: dog(s) Pets & animal details: chevy Leisure activites: sports and other Leisure activities details: swim, write, play with dog Do you think of yourself as: Straight/Heterosexual Current gender identity: Female Jerica/Bahai: Other Special jerica needs: No Agree to transfusion: Yes Female Reproductive History Para: 3 Spontaneous abortions: No Data Anesthesia Cardiac Studies: No Data to Display
[2023-07-27] MEDS: sodium chloride 0.9% 1,000 ML 30 ML IV (07:19)
--- NOTE | 2023-07-27 07:35 | P.HP_ITS ---
Providers/Chief Complaint Primary Care Provider: Rio Carreon MD Chief Complaint: K21.9 History of Present Illness Medina Irizarry is a 42 year old female Review of Systems General: Reports: 10 or more systems reviewed and unremarkable except in HPI and below Medications/Allergies Home Medications Medication Instructions Recorded Confirmed Last Taken Type cetirizine 10 mg tablet 10 mg PO DAILY 30 days #30 tabs 08/11/22 07/27/23 07/26/23 Rx fluticasone propionate 50 2 spray nasal BID PRN Congestion 06/06/23 07/27/23 07/26/23 Rx mcg/actuation nasal 30 days #1 g spray,suspension sucralfate 1 gram tablet (Carafate) 1 g PO BID #120 tabs 06/13/23 07/27/23 07/26/23 Rx pantoprazole 40 mg tablet,delayed 40 mg PO BID 6 weeks #84 tabs 06/21/23 07/27/23 07/26/23 Rx release (Protonix) polyethylene glycol 3350 17 17 g PO DAILY 30 days #119 grams 06/21/23 07/27/23 Unknown Rx gram/dose oral powder (Miralax) doxepin 25 mg capsule 50 - 75 mg (2 - 3 x 25 mg) PO 06/30/23 07/27/23 07/26/23 Rx BEDTIME 30 days #90 caps paliperidone 6 mg tablet,extended 12 mg (2 x 6 mg) PO QAM PRN 06/30/23 07/25/23 Unknown Rx release 24 hr (Invega) psychosis #60 tabs paliperidone palmitate 234 mg/1.5 234 mg (1.5 mL) IM Q30D #1.5 mL 06/30/23 07/25/23 07/05/23 Rx mL intramuscular syringe (Invega Sustenna) trazodone 100 mg tablet 300 mg (3 x 100 mg) PO .HS PRN 06/30/23 07/25/23 07/24/23 Rx insomnia #90 tabs hydroxyzine HCl 50 mg tablet 50 mg PO TID PRN anxiety or 07/25/23 07/27/23 07/26/23 History insomnia levothyroxine 150 mcg tablet 150 mcg PO DAILY 07/25/23 07/25/23 07/27/23 History prazosin 5 mg capsule (Minipress) 5 - 10 mg PO BID 07/25/23 07/27/23 07/26/23 History Allergies Allergy/AdvReac Type Severity Reaction Status Date / Time No Known Allergies Allergy Verified 07/25/23 09:32 PFSH Acute PFSH: Medical History Anxiety Bipolar disorder with psychotic features Depression Fatigue Homeless Hypothyroid Insomnia Psychiatric care Schizophrenia Substance abuse Surgical History History of bilateral tubal ligation History of hernia repair Family History Other Psychiatric illness Denies family history of Diabetes CAD (coronary artery disease) Clotting disorder Dementia Hyperlipidemia Chronic kidney disease (CKD) Anesthesia complication Bleeding disorder Lung disease Cancer Hypertension Stroke Social History Smoking and tobacco/nicotine status: current every day tobacco/nicotine user cigarettes Packs smoked per day: 0.5 Years cigarettes smoked: 22 Quit status (tobacco/nicotine): has tried quititng Number of times tried to quit tobacco: 2 Second hand smoke exposure: No Alcohol intake: former Substance/Drug Use: former Adopted: No Caregiver/support person: No Lives independently: Yes Household members: none Housing: Other Details: RV Marital status: Number of children: 3 Number of grandchildren: 4 Highest education level completed: GED or Equivalent service: No Current occupational status: unemployed Current occupational exposures/hazards: No Pets and animals: Yes Pets & animals: dog(s) Pets & animal details: chevy Leisure activites: sports and other Leisure activities details: swim, write, play with dog Do you think of yourself as: Straight/Heterosexual Current gender identity: Female Jerica/Roman Catholic: Other Special jerica needs: No Agree to transfusion: Yes Female Reproductive History: Para: 3 Spontaneous abortions: No Vitals/I&O/Wt Last Vital Signs Temp 97.7 F 07/27/23 06:12 Pulse 106 H 07/27/23 06:12 Resp 16 07/27/23 06:12 BP 139/100 07/27/23 06:12 Pulse Ox 97 07/27/23 06:12 O2 Del Method Room Air 07/27/23 06:12 Weight last 48 hrs Weight 170 lb A&P Assessment and plan (1) GERD (gastroesophageal reflux disease): Plan EGD Attestations Medical Necessity Statement*: Home Coding Level of Care Code Acute Code for Chg Fwd Diagnoses GERD (gastroesophageal reflux disease) K21.9
[2023-07-27 07:51] VITALS: BP 107/80; PULSE 94; RESP 10; TEMP 36.5; O2SAT 91
[2023-07-27 08:00] VITALS: BP 119/88; PULSE 94; RESP 18; O2SAT 93
[2023-07-27 08:05] VITALS: BP 104/87; PULSE 83; RESP 18; O2SAT 99
--- NOTE | 2023-07-27 13:27 | ANE.PACU2 ---
Inpatient post-anesthesia follow up: Airway intact: Yes Vital signs: Temperature 97.7 F Pulse Rate 83 Respiratory Rate 18 Blood Pressure 104/87 Pulse Oximetry 99 Oxygen Delivery Me thod Room Air Oxygen Flow Rate Fraction of Inspir ed Oxygen Hydration adequate: Yes Nausea and vomiting: No Pain level: 1 Mental status: Baseline
== END 2023-07-27 08:25 | disposition home or self-care (01) ==
PROVIDERS: Anesthesiology; PCP Family Medicine; Visit Provider Surgery
PROC: 0DJ08ZZ Inspection of Upper Intestinal Tract, Via Natural or Artificial Opening Endoscopic (ICD-10-PCS; CPT 43235; principal; 2023-07-27 07:00)
DX: K21.9 Gastro-esophageal reflux disease without esophagitis (principal); F41.9 Anxiety disorder, unspecified; E03.9 Hypothyroidism, unspecified; F17.210 Nicotine dependence, cigarettes, uncomplicated; K29.50 Unspecified chronic gastritis without bleeding; K44.9 Diaphragmatic hernia without obstruction or gangrene
CPT/HCPCS: 43239; 76937; 81025; 84703; 88305; 88342; J2704; J7030

== ENCOUNTER → 2023-08-15 09:22 | Outpatient (BNVA) | payer MEDICAID, SELFPAY ==
[2023-04-06 13:09] VITALS: BP 126/78; BMI 29.1
== END ==
PROVIDERS: PCP Family Medicine; Visit Provider Internal Medicine
DX: E03.9 Hypothyroidism, unspecified (principal); F41.9 Anxiety disorder, unspecified; K21.9 Gastro-esophageal reflux disease without esophagitis
CPT/HCPCS: 84439; 84443

== ENCOUNTER → 2023-10-05 11:54 | Outpatient (BNVA) | payer OTHER, MEDICAID, SELFPAY ==
[2023-04-06 13:09] VITALS: BP 126/78; BMI 29.1
== END ==
PROVIDERS: PCP Family Medicine; Visit Provider Nurse Practitioner Psychiatric/Mental Health
DX: G47.00 Insomnia, unspecified (principal); Z79.899 Other long term (current) drug therapy; F31.64 Bipolar disorder, current episode mixed, severe, with psychotic features; F43.12 Post-traumatic stress disorder, chronic; F41.1 Generalized anxiety disorder; F15.20 Other stimulant dependence, uncomplicated; F11.21 Opioid dependence, in remission
CPT/HCPCS: 80307

== ENCOUNTER 2023-10-11 08:47 | Outpatient (CLI) | payer MEDICAID, SELFPAY ==
[2023-04-06 13:09] VITALS: BP 126/78; BMI 29.1
[2023-10-11 10:56] LABS: Free T4 Free Thyroxine 1.36 ng/dL (0.82-1.77); Thyroid Stimulating Hormone 1.14 uIU/mL (0.27-4.20)
== END 2023-10-11 08:48 | disposition home or self-care (01) ==
LOC: LAB 08:49
PROVIDERS: PCP Family Medicine; Visit Provider Internal Medicine
DX: E03.9 Hypothyroidism, unspecified (principal)
CPT/HCPCS: 84439; 84443

== ENCOUNTER 2023-11-16 15:50 | Outpatient (CLI) | payer MEDICAID, SELFPAY ==
[2023-10-18 09:49] VITALS: BP 126/78; BMI 29.1
[2023-11-16 17:48] LABS: Alanine Aminotransferase 7 U/L (0-33); Alkaline Phosphatase 110 U/L (35-105); Anion Gap 15.9 (5-19); Aspartate Amino Transferase 11 U/L (0-32); Blood Urea Nitrogen 6 mg/dL (6-20); Calcium 8.9 mg/dL (8.5-10.5); Carbon Dioxide 24 mmol/L (22-29); Chloride 105 mmol/L (98-107); Cholesterol 203 mg/dL (0-200); Globulin 2.5 g/dL (1.3-4.6); Glomerular Filtration Rate 109.6 mL/min (90-130); Glucose 71 mg/dL (65-115); Osmolality Calculated 288 mOsm/kg (285-295); Potassium 3.9 mmol/L (3.5-5.1); Sodium 141 mmol/L (136-145); Total Bilirubin 0.2 mg/dL (0.15-1.2); Total Protein 6.5 g/dL (6.6-8.7); Triglycerides 218 mg/dL (0-150)
[2023-11-16 19:50] LABS: Chol HDL Ratio 4.72 mg/dL (0.0-4.40); HDL Cholesterol 43 mg/dL (60-100); LDL Cholesterol Calculated 116 mg/dL (50-129)
[2023-11-16 20:01] LABS: Estmated Average Glucose 88; Hemoglobin A1C 4.7 % (4.0-6.0)
== END 2023-11-16 15:51 | disposition home or self-care (01) ==
LOC: LAB 15:52
PROVIDERS: PCP Family Medicine; Visit Provider Nurse Practitioner Psychiatric/Mental Health
DX: Z79.899 Other long term (current) drug therapy (principal)
CPT/HCPCS: 36415; 80053; 80061; 83036

== ENCOUNTER 2024-01-09 10:05 | Outpatient (CLI) | payer MEDICAID, SELFPAY ==
[2023-10-18 09:49] VITALS: BP 126/78; BMI 29.1
[2024-01-09 12:03] LABS: Free T4 Free Thyroxine 1.67 ng/dL (0.82-1.77)
== END 2024-01-09 10:06 | disposition home or self-care (01) ==
LOC: LAB 10:06
PROVIDERS: PCP Family Medicine; Visit Provider Internal Medicine
DX: E03.9 Hypothyroidism, unspecified (principal)
CPT/HCPCS: 84439; 84443

== ENCOUNTER 2024-02-02 10:02 | Outpatient (CLI) | payer MEDICAID, SELFPAY ==
[2023-10-18 09:49] VITALS: BP 126/78; BMI 29.1
[2024-02-02 10:59] LABS: Free T4 Free Thyroxine 1.55 ng/dL (0.82-1.77); Thyroid Stimulating Hormone 1.94 uIU/mL (0.27-4.20)
== END 2024-02-02 10:03 | disposition home or self-care (01) ==
LOC: LAB 10:03
PROVIDERS: PCP Family Medicine; Visit Provider Internal Medicine
DX: E03.9 Hypothyroidism, unspecified (principal)
CPT/HCPCS: 84439; 84443

== ENCOUNTER 2024-07-11 10:11 | Outpatient (CLI) | payer MEDICAID, SELFPAY ==
[2024-05-11 14:14] VITALS: BP 99/67; BMI 26.8
[2024-07-11 12:02] LABS: Free T4 Free Thyroxine 1.63 ng/dL (0.82-1.77); Thyroid Stimulating Hormone 1.15 uIU/mL (0.27-4.20)
== END 2024-07-11 10:12 | disposition home or self-care (01) ==
LOC: LAB 10:15
PROVIDERS: PCP Family Medicine; Visit Provider Internal Medicine
DX: E03.9 Hypothyroidism, unspecified (principal)
CPT/HCPCS: 84439; 84443

== ENCOUNTER → 2024-11-04 10:08 | Outpatient (BNVA) | payer MEDICAID, SELFPAY ==
[2024-08-02 08:07] VITALS: BP 99/67; BMI 26.8
== END ==
PROVIDERS: PCP Family Medicine; Visit Provider Nurse Practitioner
DX: J10.1 Influenza due to other identified influenza virus with other respiratory manifestations (principal)
CPT/HCPCS: 87400

== ENCOUNTER 2025-02-25 15:31 | Outpatient (CLI) | payer MEDICAID, SELFPAY ==
[2025-02-18 10:16] VITALS: BP 117/86; BMI 27.8
[2025-02-25 17:00] LABS: Free T4 Free Thyroxine 1.45 ng/dL (0.82-1.77); Thyroid Stimulating Hormone 2.88 uIU/mL (0.27-4.20)
== END 2025-02-25 15:32 | disposition home or self-care (01) ==
PROVIDERS: PCP Family Medicine; Visit Provider Internal Medicine
DX: R63.5 Abnormal weight gain (principal); R53.83 Other fatigue; K21.9 Gastro-esophageal reflux disease without esophagitis; E03.9 Hypothyroidism, unspecified
CPT/HCPCS: 36415; 84439; 84443

== ENCOUNTER 2025-03-25 10:37 | Outpatient (CLI) | payer MEDICAID, SELFPAY ==
[2025-02-18 10:16] VITALS: BP 117/86; BMI 27.8
[2025-03-25 11:22] LABS: Hematocrit 38.3 % (36-47); Hemoglobin 12.80 g/dL (11.27-16.99); Mean Corpuscular HGB Conc 33.4 g/dL (30-55); Mean Corpuscular Hemoglobin 31.6 pg (27-33); Mean Corpuscular Volume 94.6 fl (85-98); Nucleated Red Blood Cells % 0 %; Platelet Count 305 10^3/cmm (157-399); Red Blood Count 4.05 10^6/uL (3.85-5.65); White Blood Count 9.20 10^3/uL (3.29-11.43)
[2025-03-25 11:57] LABS: Alanine Aminotransferase 32 U/L (0-33); Albumin Level 4.0 g/dL (3.5-5.2); Alkaline Phosphatase 146 U/L (35-105); Anion Gap 13.0 (5-19); Aspartate Amino Transferase 19 U/L (0-32); Blood Urea Nitrogen 13 mg/dL (6-20); Calcium 9.1 mg/dL (8.5-10.5); Carbon Dioxide 28 mmol/L (22-29); Chloride 101 mmol/L (98-107); Cholesterol 213 mg/dL (0-200); Free T4 Free Thyroxine 1.49 ng/dL (0.82-1.77); Globulin 2.6 g/dL (1.3-4.6); Glucose 84 mg/dL (65-115); HDL Cholesterol 54 mg/dL (60-100); Osmolality Calculated 285 mOsm/kg (285-295); Potassium 4.0 mmol/L (3.5-5.1); Sodium 138 mmol/L (136-145); Thyroid Stimulating Hormone 1.59 uIU/mL (0.27-4.20); Total Protein 6.6 g/dL (6.6-8.7); Triglycerides 155 mg/dL (0-150)
== END 2025-03-25 10:38 | disposition home or self-care (01) ==
PROVIDERS: PCP Family Medicine; Visit Provider Nurse Practitioner Family
DX: E03.9 Hypothyroidism, unspecified (principal); F32.9 Major depressive disorder, single episode, unspecified; Z68.30 Body mass index [BMI] 30.0-30.9, adult
CPT/HCPCS: 36415; 80053; 80061; 84439; 84443; 85025